=== PATIENT | female | born 1970 | race Caucasian/White ===

== ENCOUNTER → 2016-03-02 | Outpatient (CLI) | payer BC ==
[~2016-03-02] MED LIST: CLARITIN 1010 MG/TAB PO; DHA; FOLIC ACID 11 MG/TA1 PO; LEVEMIR FLEXPEN SC; PRENATAL1 TA1 PO; PROVENTIL 2MG TA2 MG PO; PULMICORT90 MCG/Act IH; SINGULAIR 110 MG/TAB PO
== END ==
LOC: MC.RAD 13:20
DX: Z12.31 Encounter for screening mammogram for malignant neoplasm of breast (principal)

== ENCOUNTER → 2017-05-31 | Outpatient (CLI) | payer BC | LOC: COL.LAB 18:23 | DX: N63.20 Unspecified lump in the left breast, unspecified quadrant (principal) ==

== ENCOUNTER → 2017-05-31 | Outpatient (CLI) | payer BC | LOC: MC.RAD 14:32 | DX: N61.1 Abscess of the breast and nipple (principal); N63.23 Unspecified lump in the left breast, lower outer quadrant ==

== ENCOUNTER → 2019-09-26 | Outpatient (CLI) | payer BC | LOC: MC.RAD 09:44 | DX: Z12.31 Encounter for screening mammogram for malignant neoplasm of breast (principal) ==

== ENCOUNTER 2020-09-09 20:56 | Emergency (ER) | payer BC | END 2020-09-09 21:15 | disposition left against medical advice (07) | LOC: COL.ER 20:56 | DX: R69 Illness, unspecified (principal) ==